=== PATIENT | male | born 1960 | race Caucasian/White ===

== ENCOUNTER 2020-12-28 06:03 | Inpatient (IN) | payer MEDICAID, MEDICARE ==
[2020-12-28] MEDS ORDERED: SODIUM CHLORIDE 0.9% 1,000 ML IV STA (06:06)
[2020-12-28 06:09] VITALS: TEMP 97.8
[2020-12-28 06:11] LABS: Glucose,Whole Blood 204 mg/dL (75-99)
--- NOTE | 2020-12-28 06:20 | ED ---
Weakness HPI - General Source: EMS, RN notes reviewed, old records reviewed Mode of arrival: EMS Limitations: no limitations, altered mental status - History of Present Illness MD Complaint: generalized weakness, lack of energy -: days(s) Location: generalized Severity: moderate (Patient woke up today with worsening symptoms in the abdominal pain) Consistency: constant Improves with: none Worsens with: none Context: recent illness, history of similar Associated Symptoms: easy bruising, shortness of breath <Morales Roth - Last Filed: 12/28/20 06:43> <Rony Lopez - Last Filed: 12/28/20 09:30> - General Chief complaint: Abdominal Pain Stated complaint: Abdominal Pain Time Seen by Provider: 12/28/20 06:04 - History of Present Illness Initial comments: This is a 60-year-old male DF for evaluation patient is presented for home for multiple complaints, abdominal pain weakness dizziness lightheadedness. Feels like he may pass out. She had persistent epigastric pain with no nausea vomiting or diarrhea. Weakness lightheadedness and dizziness are acute on chronic issue for him. He has history of significant anemia. Blood pressure was low per EMS. (Morales Roth) - Related Data Home Medications Medication Instructions Recorded Confirmed Aspirin 81 mg PO DAILY 12/28/20 12/28/20 Calcium Polycarbophil [Fibercon] 625 mg PO DAILY 12/28/20 12/28/20 Cinnamon Bark [Cinnamon] 1,000 mg PO BID 12/28/20 12/28/20 Clopidogrel [Plavix] 75 mg PO DAILY 12/28/20 12/28/20 Docusate [Colace] 100 mg PO DAILY 12/28/20 12/28/20 Gabapentin [Neurontin] 100 mg PO DAILY 12/28/20 12/28/20 Gabapentin [Neurontin] 300 mg PO HS 12/28/20 12/28/20 Insulin Degludec [Tresiba 45 units SQ DAILY 12/28/20 12/28/20 Flextouch U-200] Insulin Lispro [humaLOG Kwikpen] See Protocol SQ AC-TID 12/28/20 12/28/20 Latanoprost/Pf [Latanoprost 0.005% 1 drop BOTH EYES HS 12/28/20 12/28/20 Eye Drop] Levocetirizine Dihydrochloride 5 mg PO DAILY 12/28/20 12/28/20 [Xyzal] Losartan [Cozaar] 50 mg PO BID 12/28/20 12/28/20 Magnesium Oxide [Mag-Ox] 400 mg PO DAILY 12/28/20 12/28/20 Metoclopramide [Reglan] 5 mg PO DAILY 12/28/20 12/28/20 Mirtazapine [Remeron] 30 mg PO HS 12/28/20 12/28/20 Multivit-Mins/Iron/Folic/Lycop 1 tab PO DAILY 12/28/20 12/28/20 [Centrum Men's Tablet] [place]-3 Fatty Acids [Cel[place]on-3] 2,000 mg PO DAILY 12/28/20 12/28/20 Pantoprazole [Protonix] 40 mg PO DAILY 12/28/20 12/28/20 Ponatinib HCl [Iclusig] 15 mg PO BID 12/28/20 12/28/20 Turmeric/Turmeric Root Extract 1 cap PO DAILY 12/28/20 12/28/20 [Turmeric 450-50 mg Capsule] Zolpidem Tartrate 1.75 mg SL HS PRN 12/28/20 12/28/20 predniSONE 2.5 mg PO DAILY 12/28/20 12/28/20 rOPINIRole HCL [Requip] 3 mg PO HS 12/28/20 12/28/20 sitaGLIPtin [Januvia] 100 mg PO DAILY 12/28/20 12/28/20 Allergies Allergy/AdvReac Type Severity Reaction Status Date / Time adhesive tape Allergy Unknown Verified 12/28/20 08:23 amoxicillin [From Augmentin] Allergy Unknown Verified 12/28/20 08:23 ampicillin [From Unasyn] Allergy Unknown Verified 12/28/20 08:23 clavulanic acid Allergy Unknown Verified 12/28/20 08:23 [From Augmentin] clindamycin [From Cleocin] Allergy Unknown Verified 12/28/20 08:23 digoxin Allergy Rash/Hives Verified 12/28/20 08:23 latex Allergy Unknown Verified 12/28/20 08:23 nilotinib [From Tasigna] Allergy Unknown Verified 12/28/20 08:23 Penicillins Allergy Rash/Hives Verified 12/28/20 08:23 sulbactam [From Unasyn] Allergy Unknown Verified 12/28/20 08:23 Review of Systems ROS Other: All systems not noted in ROS Statement are negative. <Morales Roth - Last Filed: 12/28/20 06:43> ROS Other: All systems not noted in ROS Statement are negative. <Rony Lopez - Last Filed: 12/28/20 09:30> ROS Statement: Those systems with pertinent positive or pertinent negative responses have been documented in the HPI. 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 Absent: scleral icterus, conjunctival injection, periorbital swelling ENT exam: Present: normal exam, mucous membranes moist Neck exam: Present: normal inspection. Absent: tenderness, meningismus, lymphadenopathy Respiratory exam: Present: normal lung sounds bilaterally. Absent: respiratory distress, wheezes, rales, rhonchi, stridor Cardiovascular Exam: Present: regular rate, normal rhythm, normal heart sounds. Absent: systolic murmur, diastolic murmur, rubs, gallop, clicks GI/Abdominal exam: Present: soft, normal bowel sounds. Absent: distended, tenderness, guarding, rebound, rigid Extremities exam: Present: normal inspection, full ROM, normal capillary refill. Absent: tenderness, pedal edema, joint swelling, calf tenderness Back exam: Present: normal inspection Neurological exam: Present: alert, oriented X3, CN II-XII intact Psychiatric exam: Present: normal affect, normal mood Skin exam: Present: warm, dry, intact, normal color. Absent: rash <Morales Roth - Last Filed: 12/28/20 06:43> Course <Morales Roth - Last Filed: 12/28/20 06:43> <Rony Lopez - Last Filed: 12/28/20 09:30> Vital Signs 12/28/20 12/28/20 12/28/20 06:04 06:21 07:16 Temperature 97.8 F Pulse Rate 60 60 60 Respiratory 19 19 15 Rate Blood Pressure 92/56 116/50 74/48 O2 Sat by Pulse 99 99 100 Oximetry 12/28/20 12/28/20 08 07:22 08:15 08:30 Temperature Pulse Rate 60 62 63 Respiratory 18 20 20 Rate Blood Pressure 74/42 115/71 119/59 O2 Sat by Pulse 99 96 99 Oximetry - Reevaluation(s) Reevaluation #1: 12/28/20 06:44 Medical record is reviewed (Morales Roth) Reevaluation #2: 12/28/20 06:44 Patient is a difficult IV start here in the ER (Morales Roth) Reevaluation #3: 12/28/20 0700 Patient reevaluated at the onset of my shift, he had a blood pressure in the 90s systolic. He appears pale. No further abdominal pain. No abdominal tenderness on exam. Laboratory studies pending as well as imaging. (Rony Lopez) Reevaluation #4: 12/28/20 09:27 Patient without further pain. Blood pressure improved with hydration. (Rony Lopze) EKG Findings - EKG Comments: EKG Findings:: EKG is paced at 68 FL 210 QRS 88 QTc 454 <Morales Roth - Last Filed: 12/28/20 06:43> Medical Decision Making - Lab Data Result diagrams: 12/28/20 07:15 12/28/20 07:15 <Rony Lopez - Last Filed: 12/28/20 09:30> - Medical Decision Making 60-year-old male with past medical history of leukemia, on oral chemotherapy, history of anemia, history of traumatic brain injury and CVA. Patient had presented initially with abdominal pain which began suddenly this morning. Patient had been in his usual state of health yesterday. Been quite active with his son. Laboratory studies reveal normal white blood cell count, hemoglobin 9.0 which is stable for this patient according to his family who is at bedside. He has a platelets of 100. Normal electrolytes, he is acidotic with CO2 of 18 and a lactic of 3.8. His chest x-ray is clear. Abdominal CT shows ascites and hepatosplenomegaly with no acute findings. His blood pressure does respond to fluid bolus. He will be admitted for IV hydration and close observation, further evaluation and treatment. Admitting physician has been paged. Urinalysis pending (Rony Lopez) - Lab Data Lab Results 12/28/20 12/28/20 12/28/20 Range/Units 06:09 07:15 07:15 WBC 10.1 (3.8-10.6) k/uL RBC 3.01 L (4.30-5.90) m/uL Hgb 9.0 L (13.0-17.5) gm/dL Hct 28.3 L (39.0-53.0) % MCV 94.1 (80.0-100.0) fL MCH 29.8 (25.0-35.0) pg MCHC 31.7 (31.0-37.0) g/dL RDW 20.4 H (11.5-15.5) % Plt Count 106 L (150-450) k/uL MPV 10.2 Hypochromasia Marked Poikilocytosis Slight Anisocytosis Moderate Macrocytosis Slight Sodium 136 L (137-145) mmol/L Potassium 4.4 (3.5-5.1) mmol/L Chloride 108 H (98-107) mmol/L Carbon Dioxide 18 L (22-30) mmol/L Anion Gap 10 mmol/L BUN 14 (9-20) mg/dL Creatinine 1.03 (0.66-1.25) mg/dL Est GFR (CKD-EPI)AfAm >90 (>60 ml/min/1.73 sqM) Est GFR (CKD-EPI)NonAf 79 (>60 ml/min/1.73 sqM) Glucose 221 H (74-99) mg/dL POC Glucose (mg/dL) 204 H (75-99) mg/dL POC Glu Vp Of Marketing ID Godinez, Floyd Plasma Lactic Acid Gaurang (0.7-2.0) mmol/L Calcium 9.1 (8.4-10.2) mg/dL Phosphorus 4.3 (2.5-4.5) mg/dL Magnesium 1.8 (1.6-2.3) mg/dL Total Bilirubin 0.3 (0.2-1.3) mg/dL AST 41 (17-59) U/L ALT 27 (4-49) U/L Alkaline Phosphatase 76 (38-126) U/L Creatine Kinase 161 (55-170) U/L Troponin I (0.000-0.034) ng/mL NT-Pro-B Natriuret Pep pg/mL Total Protein 5.9 L (6.3-8.2) g/dL Albumin 3.3 L (3.5-5.0) g/dL Lipase 36 (23-300) U/L Blood Type Blood Type Recheck Bld Type Recheck Status Spec Expiration Date 12/28/20 12/28/20 12/28/20 Range/Units 07:15 07:15 07:15 WBC (3.8-10.6) k/uL RBC (4.30-5.90) m/uL Hgb (13.0-17.5) gm/dL Hct (39.0-53.0) % MCV (80.0-100.0) fL MCH (25.0-35.0) pg MCHC (31.0-37.0) g/dL RDW (11.5-15.5) % Plt Count (150-450) k/uL MPV Hypochromasia Poikilocytosis Anisocytosis Macrocytosis Sodium (137-145) mmol/L Potassium (3.5-5.1) mmol/L Chloride (98-107) mmol/L Carbon Dioxide (22-30) mmol/L Anion Gap mmol/L BUN (9-20) mg/dL Creatinine (0.66-1.25) mg/dL Est GFR (CKD-EPI)AfAm (>60 ml/min/1.73 sqM) Est GFR (CKD-EPI)NonAf (>60 ml/min/1.73 sqM) Glucose (74-99) mg/dL POC Glucose (mg/dL) (75-99) mg/dL POC Glu Vp Of Marketing ID Plasma Lactic Acid Gaurang 3.8 H* (0.7-2.0) mmol/L Calcium (8.4-10.2) mg/dL Phosphorus (2.5-4.5) mg/dL Magnesium (1.6-2.3) mg/dL Total Bilirubin (0.2-1.3) mg/dL AST (17-59) U/L ALT (4-49) U/L Alkaline Phosphatase (38-126) U/L Creatine Kinase (55-170) U/L Troponin I <0.012 (0.000-0.034) ng/mL NT-Pro-B Natriuret Pep 1140 pg/mL Total Protein (6.3-8.2) g/dL Albumin (3.5-5.0) g/dL Lipase (23-300) U/L Blood Type Blood Type Recheck Bld Type Recheck Status Spec Expiration Date 12/28/20 12/28/20 Range/Units 07:15 08:27 WBC (3.8-10.6) k/uL RBC (4.30-5.90) m/uL Hgb (13.0-17.5) gm/dL Hct (39.0-53.0) % MCV (80.0-100.0) fL MCH (25.0-35.0) pg MCHC (31.0-37.0) g/dL RDW (11.5-15.5) % Plt Count (150-450) k/uL MPV Hypochromasia Poikilocytosis Anisocytosis Macrocytosis Sodium (137-145) mmol/L Potassium (3.5-5.1) mmol/L Chloride (98-107) mmol/L Carbon Dioxide (22-30) mmol/L Anion Gap mmol/L BUN (9-20) mg/dL Creatinine (0.66-1.25) mg/dL Est GFR (CKD-EPI)AfAm (>60 ml/min/1.73 sqM) Est GFR (CKD-EPI)NonAf (>60 ml/min/1.73 sqM) Glucose (74-99) mg/dL POC Glucose (mg/dL) (75-99) mg/dL POC Glu Vp Of Marketing ID Plasma Lactic Acid Gaurang (0.7-2.0) mmol/L Calcium (8.4-10.2) mg/dL Phosphorus (2.5-4.5) mg/dL Magnesium (1.6-2.3) mg/dL Total Bilirubin (0.2-1.3) mg/dL AST (17-59) U/L ALT (4-49) U/L Alkaline Phosphatase (38-126) U/L Creatine Kinase (55-170) U/L Troponin I (0.000-0.034) ng/mL NT-Pro-B Natriuret Pep pg/mL Total Protein (6.3-8.2) g/dL Albumin (3.5-5.0) g/dL Lipase (23-300) U/L Blood Type O Negative Blood Type Recheck No Previous Record No Previous Record Bld Type Recheck Status CABO Indicated CABO Indicated Spec Expiration Date 12/31/2020231412/31/20202326 Critical Care Time Critical Care Time: Yes Total Critical Care Time: 35 <Rony Lopez - Last Filed: 12/28/20 09:30> Disposition <Morales Roth - Last Filed: 12/28/20 06:43> Is patient prescribed a controlled substance at d/c from ED?: No Decision to Admit Reason: Admit from EC Decision Date: 12/28/20 Decision Time: 09:29 <Rony Lopez - Last Filed: 12/28/20 09:30> Clinical Impression: Abdominal pain, Lactic acidosis, Dehydration Disposition: ADMITTED IP TO THIS [facility] Condition: Stable Referrals: Anne Prescott DO [Primary Care Provider] - 1-2 days
[2020-12-28 07:32] LABS: Anisocytosis Moderate; HCT 28.3 % (39.0-53.0); Hypochromasia Marked; MCH 29.8 pg (25.0-35.0); MCHC 31.7 g/dL (31.0-37.0); MCV 94.1 fL (80.0-100.0); Macrocytosis Slight; Mean Platelet Volume 10.2; Platelet Count 106 k/uL (150-450); Poikilocytosis Slight; RBC 3.01 m/uL (4.30-5.90); RDW 20.4 % (11.5-15.5); WBC 10.1 k/uL (3.8-10.6)
[2020-12-28 07:52] LABS: ALT 27 U/L (4-49); AST 41 U/L (17-59); African American GFR (CKD) >90 (>60 ml/min/1.73 sqM); Albumin 3.3 g/dL (3.5-5.0); Alkaline Phosphatase 76 U/L (38-126); Anion Gap 10 mmol/L; Blood Urea Nitrogen 14 mg/dL (9-20); Calcium 9.1 mg/dL (8.4-10.2); Carbon Dioxide 18 mmol/L (22-30); Chloride 108 mmol/L (98-107); Creatine Kinase 161 U/L (55-170); Glucose 221 mg/dL (74-99); Lipase 36 U/L (23-300); Magnesium 1.8 mg/dL (1.6-2.3); Non-African American GFR(CKD) 79 (>60 ml/min/1.73 sqM); Phosphorus 4.3 mg/dL (2.5-4.5); Potassium 4.4 mmol/L (3.5-5.1); Sodium 136 mmol/L (137-145); Total Bilirubin 0.3 mg/dL (0.2-1.3); Total Protein 5.9 g/dL (6.3-8.2)
[2020-12-28] MEDS ORDERED: SODIUM CHLORIDE 0.9% 500 ML 500 ML IV ONE (07:58)
--- NOTE | 2020-12-28 08:37 | CT ---
EXAMINATION TYPE: CT abdomen pelvis wo con DATE OF EXAM: 12/28/2020 COMPARISON: None INDICATION: Abdominal pain DLP: 2015.2 mGycm, Automated exposure control for dose reduction was used. CONTRAST: 0 mL of Isovue 300. Study performed without Oral Contrast TECHNIQUE: Axial images were obtained from above the diaphragm to the pubic rami in the axial plane a t 5 mm thick sections. Reconstructed images are reviewed on the computer in the coronal plane. FINDINGS: Limited CT sections are obtained the lung bases. Scattered streaky opacities in bilateral lung bases likely on the basis of atelectasis. Some very minimal pleural effusions. Be present greater on the r ight. Some pleural calcification and plaquing may be present on the posterior lateral left lung base. This would warrant follow-up. CT ABDOMEN: Mild ascites is present. Liver: Hepatomegaly is present at 26.1 cm. Calcification is within the liver. Spleen: Marked splenomegaly at 19.9 cm. Pancreas: Normal Adrenal glands: The adrenal glands are normal. Gallbladder: Surgically absent Kidneys: No masses are evident. No hydronephrosis is present. No cysts are present. A very fine un measurable calcification may be at the superior pole right kidney. No enlarged or obstructing renal s tones are evident. Aorta: Vascular calcification is within the aorta. Inferior vena cava: Filters within the inferior vena cava. CT PELVIS: Some free fluid is within the pelvis. Loops of bowel within the abdomen and pelvis are normal. This study without oral contrast limitin g bowel evaluation. Appendix: Not identified. No dilated tubular structure or inflammatory changes are evident. Urinary bladder: Normal. Genitourinary structures: Prostate appears unremarkable Osseous structures: No suspicious lytic or sclerotic lesions. Facet degenerative changes are within t he lower lumbar spine. Bilateral fat-containing inguinal hernias are present. IMPRESSIONS: 1. Ascites. 2. Hepatosplenomegaly.
[2020-12-28 08:39] LABS: Band Neutrophils % 8 %; Lymphocytes # (M) 3.94 k/uL (1.0-4.8); Metamyelocytes % 2 %; Myelocytes % 4 %; Neutrophils % (M) 30 %
[2020-12-28 08:40] LABS: Blast Cells # (M) 1.62 k/uL (0); Nucleated Red Blood Cells 0 /100 WBC (0-0); Total Cells Counted 100
--- NOTE | 2020-12-28 08:53 | XR ---
EXAMINATION TYPE: XR chest 1V portable DATE OF EXAM: 12/28/2020 COMPARISON: CT same date HISTORY: Epigastric pain, abdomen pain, nausea, abnormal CT TECHNIQUE: Single frontal view of the chest is obtained. FINDINGS: Patchy density is again noted the right lung base, there is blunting the right costophreni c angle, possibly chronic pleural reaction, atelectasis. Cardiac mediastinal silhouette is within nor mal limits. There is generated in the left pectoral region, there are leads in the right atrium and v entricle. No evident pneumothorax. Patient is rotated. There is an underlying scoliotic curvature to the spine. There are overlying artifacts. IMPRESSION: Probable chronic pleural reaction at the right lung base, there may be some atelectasis or scarring.
[2020-12-28] MEDS ORDERED: ACETAMINOPHEN TAB 325 MG TAB PO PRN (09:25)
[2020-12-28] MEDS ORDERED: NALOXONE 0.4 MG/ML 1 ML VIAL IV PRN ×2 (09:25→12:42)
[2020-12-28] MEDS ORDERED: HYDROmorphone 0.5 MG/0.5 ML SYRINGE IVP PRN (09:25)
[2020-12-28] MEDS ORDERED: ONDANSETRON 4 MG/2 ML VIAL IVP PRN (09:25)
[2020-12-28] MEDS ORDERED: SODIUM CHLORIDE 0.9% 1,000 ML IV SCH (09:30)
[2020-12-28 11:36] VITALS: RESP 18
[2020-12-28 11:54] LABS: Partial Thromboplastin Time 25.7 sec (22.0-30.0)
[2020-12-28 12:09] LABS: Appearance,Urine Clear (Clear); Bilirubin,Urine Negative (Negative); Blood,Urine Negative (Negative); Color,Urine Yellow; Glucose,Urine (UA) Negative (Negative); Ketones,Urine Negative (Negative); Leukocyte Esterase,Urine Negative (Negative); Nitrite,Urine Negative (Negative); Protein,Urine Negative (Negative); Specific Gravity,Urine 1.017 (1.001-1.035); Urobilinogen,Urine <2.0 mg/dL (<2.0)
[2020-12-28 13:06] LABS: Polychromasia Present
[2020-12-28] MEDS ORDERED: ASPIRIN 81 MG PO SCH (14:00)
[2020-12-28] MEDS ORDERED: predniSONE 2.5 MG TAB PO SCH (14:00)
[2020-12-28] MEDS ORDERED: CLOPIDOGREL 75 MG TAB PO SCH (14:00)
[2020-12-28] MEDS ORDERED: GABAPENTIN 100 MG CAP PO SCH ×2 (14:00→21:00)
[2020-12-28] MEDS ORDERED: METOCLOPRAMIDE 5 MG TAB PO SCH (14:00)
[2020-12-28] MEDS ORDERED: LORATADINE 10 MG TAB PO SCH (14:00)
[2020-12-28] MEDS ORDERED: MAGNESIUM OXIDE 400 MG TAB PO SCH (14:00)
[2020-12-28] MEDS ORDERED: DOCUSATE 100 MG CAP PO SCH (14:00)
[2020-12-28 14:38] VITALS: BP 130/63; PULSE 71
--- NOTE | 2020-12-28 15:35 | P.HPIM ---
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 Patient's history is supplemented by son who is at bedside. From my understanding, patient had an acute onset of abdominal pain this morning and continued to be lethargic throughout the day. Patient has been on oral immunotherapy for ALL, and recently had his blood counts checked and was found to have stable blood counts approximately 1 week ago. However, throughout the week, patient has been increasingly weak. In addition to his abdominal pain, which is described to be in his lower quadrants, he also has had nausea without vomiting. He denies fevers, chills, chest pain, dyspnea, palpitations, diarrhea, numbness/weakness of extremities. He does report abdominal fullness, constipation. In the emergency room, patient is afebrile, initially 70s over 40s which improved to 130/63 with IV fluids. Lab work is significant for anemia down to 9.0, thrombus cytopenia down to 106, last anemia with 60% blast cells; bicarb of 18 without an anion gap, initial lactic acid is 3.8 which improved to 2.2, ENP of 1140, negative troponin, negative CK, negative lipase. UA was unremarkable. CT of the abdomen/pelvis was significant for hepatosplenomegaly as well as as cites, which patient reports is new. Chest x-ray shows chronic right lower lobe pleural scarring consistent with his history of pleurodesis. EKG shows atrial paced rhythm with no bundle branch block. 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 History of Any Multi-Drug Resistant Organisms: None Reported Past Surgical History: AICD, Heart Catheterization With Stent Additional Past Surgical History / Comment(s): halo, trach, feeding tube Past Psychological History: No Psychological Hx Reported Smoking Status: Never smoker Past Alcohol Use History: None Reported Past Drug Use History: None Reported Medications and Allergies Home Medications Medication Instructions Recorded Confirmed Type Aspirin 81 mg PO DAILY 12/28/20 12/28/20 History Calcium Polycarbophil [Fibercon] 625 mg PO DAILY 12/28/20 12/28/20 History Cinnamon Bark [Cinnamon] 1,000 mg PO BID 12/28/20 12/28/20 History Clopidogrel [Plavix] 75 mg PO DAILY 12/28/20 12/28/20 History Docusate [Colace] 100 mg PO DAILY 12/28/20 12/28/20 History Gabapentin [Neurontin] 100 mg PO DAILY 12/28/20 12/28/20 History Gabapentin [Neurontin] 300 mg PO HS 12/28/20 12/28/20 History Insulin Degludec [Tresiba 45 units SQ DAILY 12/28/20 12/28/20 History Flextouch U-200] Insulin Lispro [humaLOG Kwikpen] See Protocol SQ AC-TID 12/28/20 12/28/20 History Latanoprost/Pf [Latanoprost 0.005% 1 drop BOTH EYES HS 12/28/20 12/28/20 History Eye Drop] Levocetirizine Dihydrochloride 5 mg PO DAILY 12/28/20 12/28/20 History [Xyzal] Losartan [Cozaar] 50 mg PO BID 12/28/20 12/28/20 History Magnesium Oxide [Mag-Ox] 400 mg PO DAILY 12/28/20 12/28/20 History Metoclopramide [Reglan] 5 mg PO DAILY 12/28/20 12/28/20 History Mirtazapine [Remeron] 30 mg PO HS 12/28/20 12/28/20 History Multivit-Mins/Iron/Folic/Lycop 1 tab PO DAILY 12/28/20 12/28/20 History [Centrum Men's Tablet] [place]-3 Fatty Acids [[place]-3] 2,000 mg PO DAILY 12/28/20 12/28/20 History Pantoprazole [Protonix] 40 mg PO DAILY 12/28/20 12/28/20 History Ponatinib HCl [Iclusig] 15 mg PO BID 12/28/20 12/28/20 History Turmeric/Turmeric Root Extract 1 cap PO DAILY 12/28/20 12/28/20 History [Turmeric 450-50 mg Capsule] Zolpidem Tartrate 1.75 mg SL HS PRN 12/28/20 12/28/20 History predniSONE 2.5 mg PO DAILY 12/28/20 12/28/20 History rOPINIRole HCL [Requip] 3 mg PO HS 12/28/20 12/28/20 History sitaGLIPtin [Januvia] 100 mg PO DAILY 12/28/20 12/28/20 History Allergies Allergy/AdvReac Type Severity Reaction Status Date / Time adhesive tape Allergy Unknown Verified 12/28/20 08:23 amoxicillin [From Augmentin] Allergy Unknown Verified 12/28/20 08:23 ampicillin [From Unasyn] Allergy Unknown Verified 12/28/20 08:23 clavulanic acid Allergy Unknown Verified 12/28/20 08:23 [From Augmentin] clindamycin [From Cleocin] Allergy Unknown Verified 12/28/20 08:23 digoxin Allergy Rash/Hives Verified 12/28/20 08:23 latex Allergy Unknown Verified 12/28/20 08:23 nilotinib [From Tasigna] Allergy Unknown Verified 12/28/20 08:23 Penicillins Allergy Rash/Hives Verified 12/28/20 08:23 sulbactam [From Unasyn] Allergy Unknown Verified 12/28/20 08:23 Physical Exam Osteopathic Statement: *. No significant issues noted on an osteopathic structural exam other than those noted in the History and Physical/Consult. Vitals: Vital Signs Temp Pulse Resp BP Pulse Ox 12/28/20 14:38 71 18 130/63 99 12/28/20 13:16 68 18 129/68 97 12/28/20 11:36 68 18 130/70 94 L 12/28/20 10:00 67 18 128/56 98 12/28/20 08:30 63 20 119/59 99 12/28/20 08:15 62 20 115/71 96 12/28/20 07:22 60 18 74/42 99 12/28/20 07:16 60 15 74/48 100 12/28/20 06:21 60 19 116/50 99 12/28/20 06:04 97.8 F 60 19 92/56 99 Intake and Output 12/28/20 12/28/20 12/28/20 06:59 14:59 22:59 Other: Weight 129.274 kg Gen: awake, alert HEENT: normocephalic, atraumatic, good hearing acuity, moist mucous membranes Resp: good air exchange, breathing comfortably with no accessory muscle use, clear to auscultation bilaterally without wheezes or crackles CVS: good distal perfusion x 4, regular rate and rhythm without murmurs GI: Diffusely tenderness to palpation worse in the lower quadrants, positive ascites, appropriate bowel sounds : no SPT, no CVAT, colbert catheter not present MSK: Trace pitting edema, no clubbing Neuro: non-focal, moving all extremities Psych: cooperative, euthymic mood Results CBC & Chem 7: 12/28/20 07:15 12/28/20 07:15 Labs: Abnormal Lab Results - Last 24 Hours (Table) 12/28/20 12/28/20 12/28/20 Range/Units 06:09 07:15 07:15 RBC 3.01 L (4.30-5.90) m/uL Hgb 9.0 L (13.0-17.5) gm/dL Hct 28.3 L (39.0-53.0) % RDW 20.4 H (11.5-15.5) % Plt Count 106 L (150-450) k/uL Blast Cells % 16 H* % Metamyelocytes # (Man) 0.20 H (0) k/uL Myelocytes # (Manual) 0.40 H (0) k/uL Blast Cells # (Man) 1.62 H (0) k/uL Sodium 136 L (137-145) mmol/L Chloride 108 H (98-107) mmol/L Carbon Dioxide 18 L (22-30) mmol/L Glucose 221 H (74-99) mg/dL POC Glucose (mg/dL) 204 H (75-99) mg/dL Plasma Lactic Acid Gaurang (0.7-2.0) mmol/L Total Protein 5.9 L (6.3-8.2) g/dL Albumin 3.3 L (3.5-5.0) g/dL 12/28/20 12/28/20 Range/Units 07:15 11:00 RBC (4.30-5.90) m/uL Hgb (13.0-17.5) gm/dL Hct (39.0-53.0) % RDW (11.5-15.5) % Plt Count (150-450) k/uL Blast Cells % % Metamyelocytes # (Man) (0) k/uL Myelocytes # (Manual) (0) k/uL Blast Cells # (Man) (0) k/uL Sodium (137-145) mmol/L Chloride (98-107) mmol/L Carbon Dioxide (22-30) mmol/L Glucose (74-99) mg/dL POC Glucose (mg/dL) (75-99) mg/dL Plasma Lactic Acid Gaurang 3.8 H* 2.2 H* (0.7-2.0) mmol/L Total Protein (6.3-8.2) g/dL Albumin (3.5-5.0) g/dL Assessment and Plan Assessment: Abdominal pain Ascites -Admit inpatient, telemetry -IR consult for paracentesis -Continue Lasix, spironolactone -Ceftriaxone to cover for SBP 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 After my evaluation, I got a call from nursing that the patient would like to leave a medical advice, and does have the capacity to do so. Therefore, patient will be discharged AMA, with instructions to go to the emergency room should his symptoms return or worsen.
[2020-12-28] MEDS ORDERED: INSULIN ASPART (NovoLOG) 100 UNIT/ML VIAL SQ SCH (17:30)
--- NOTE | 2020-12-28 18:30 | P.DS ---
Providers Date of admission: 12/28/20 09:25 Expected date of discharge: 12/28/20 Attending physician: Lavern Espinoza DO [facility] Course: Patient left AMA. Patient Condition at Discharge: Stable Plan - Discharge Summary New Discharge Prescriptions: No Action Turmeric/Turmeric Root Extract [Turmeric 450-50 mg Capsule] 1 cap PO DAILY Multivit-Mins/Iron/Folic/Lycop [Centrum Men's Tablet] 1 tab PO DAILY Docusate [Colace] 100 mg PO DAILY Bryant-3 Fatty Acids [Bryant-3] 2,000 mg PO DAILY rOPINIRole HCL [Requip] 3 mg PO HS Metoclopramide [Reglan] 5 mg PO DAILY predniSONE 2.5 mg PO DAILY sitaGLIPtin [Januvia] 100 mg PO DAILY Pantoprazole [Protonix] 40 mg PO DAILY Gabapentin [Neurontin] 100 mg PO DAILY Ponatinib HCl [Iclusig] 15 mg PO BID Losartan [Cozaar] 50 mg PO BID Clopidogrel [Plavix] 75 mg PO DAILY Insulin Degludec [Tresiba Flextouch U-200] 45 units SQ DAILY Levocetirizine Dihydrochloride [Xyzal] 5 mg PO DAILY Cinnamon Bark [Cinnamon] 1,000 mg PO BID Calcium Polycarbophil [Fibercon] 625 mg PO DAILY Magnesium Oxide [Mag-Ox] 400 mg PO DAILY Mirtazapine [Remeron] 30 mg PO HS Aspirin 81 mg PO DAILY Gabapentin [Neurontin] 300 mg PO HS Latanoprost/Pf [Latanoprost 0.005% Eye Drop] 1 drop BOTH EYES HS Zolpidem Tartrate 1.75 mg SL HS PRN PRN Reason: Insomnia Insulin Lispro [humaLOG Kwikpen] See Protocol SQ AC-TID Discharge Medication List Aspirin 81 mg PO DAILY 12/28/20 [History] Calcium Polycarbophil [Fibercon] 625 mg PO DAILY 12/28/20 [History] Cinnamon Bark [Cinnamon] 1,000 mg PO BID 12/28/20 [History] Clopidogrel [Plavix] 75 mg PO DAILY 12/28/20 [History] Docusate [Colace] 100 mg PO DAILY 12/28/20 [History] Gabapentin [Neurontin] 100 mg PO DAILY 12/28/20 [History] Gabapentin [Neurontin] 300 mg PO HS 12/28/20 [History] Insulin Degludec [Tresiba Flextouch U-200] 45 units SQ DAILY 12/28/20 [History] Insulin Lispro [humaLOG Kwikpen] See Protocol SQ AC-TID 12/28/20 [History] Latanoprost/Pf [Latanoprost 0.005% Eye Drop] 1 drop BOTH EYES HS 12/28/20 [History] Levocetirizine Dihydrochloride [Xyzal] 5 mg PO DAILY 12/28/20 [History] Losartan [Cozaar] 50 mg PO BID 12/28/20 [History] Magnesium Oxide [Mag-Ox] 400 mg PO DAILY 12/28/20 [History] Metoclopramide [Reglan] 5 mg PO DAILY 12/28/20 [History] Mirtazapine [Remeron] 30 mg PO HS 12/28/20 [History] Multivit-Mins/Iron/Folic/Lycop [Centrum Men's Tablet] 1 tab PO DAILY 12/28/20 [History] Bryant-3 Fatty Acids [Bryant-3] 2,000 mg PO DAILY 12/28/20 [History] Pantoprazole [Protonix] 40 mg PO DAILY 12/28/20 [History] Ponatinib HCl [Iclusig] 15 mg PO BID 12/28/20 [History] Turmeric/Turmeric Root Extract [Turmeric 450-50 mg Capsule] 1 cap PO DAILY 12/28/20 [History] Zolpidem Tartrate 1.75 mg SL HS PRN 12/28/20 [History] predniSONE 2.5 mg PO DAILY 12/28/20 [History] rOPINIRole HCL [Requip] 3 mg PO HS 12/28/20 [History] sitaGLIPtin [Januvia] 100 mg PO DAILY 12/28/20 [History] Follow up Appointment(s)/Referral(s): Anne Prescott DO [Primary Care Provider] - 1-2 days Discharge Disposition: Left Against Medical Advice
[2020-12-28] MEDS ORDERED: ZOLPIDEM 5 MG TAB PO PRN (21:00)
[2020-12-28] MEDS ORDERED: NON FORMULARY DRUG (Cinnamon Bark [Cinnamon] 500 MG Capsule) PO SCH (21:00)
[2020-12-28] MEDS ORDERED: LATANOPROST 0.005% OPHTH DROPS 2.5 ML BTL BOTH EYES SCH (21:00)
[2020-12-28] MEDS ORDERED: MIRTAZAPINE 15 MG TAB PO SCH (21:00)
[2020-12-29] MEDS ORDERED: INSULIN DETEMIR (LEVEMIR) 100 UNIT/ML SYR SQ SCH (07:00)
[2020-12-29] MEDS ORDERED: PANTOPRAZOLE 40 MG/10 ML VIAL IV SCH (09:00)
[2020-12-29] MEDS ORDERED: [UNRECOGNIZED DRUG - OTHER] PO SCH (09:00)
[2020-12-29] MEDS ORDERED: MULTIVITAMINS, THERA 1 EACH TAB PO SCH (09:00)
[2020-12-29] MEDS ORDERED: NON FORMULARY DRUG (Omega-3 Fatty Acids [Omega-3] 1,000 MG Capsule) PO SCH (09:00)
[2020-12-29] MEDS ORDERED: TURMERIC PO SCH (09:00)
[2020-12-29] MEDS ORDERED: PANTOPRAZOLE 40 MG TABLET PO SCH (09:00)
[2020-12-29] MEDS ORDERED: TURMERIC ROOT EXTRACT PO SCH (09:00)
== END 2020-12-28 15:17 | disposition left against medical advice (07) | DRG 948 ==
LOC: EC 06:03 → 3SCARD 09:25
PROVIDERS: ADMIT Internal Medicine; ATTEND Internal Medicine
PROC: 05HB33Z Insertion of Infusion Device into Right Basilic Vein, Percutaneous Approach (ICD-10-PCS; principal; 2020-12-28 09:00)
DX: R18.8 Other ascites (principal); E87.2 Acidosis; I69.351 Hemiplegia and hemiparesis following cerebral infarction affecting right dominant side; D69.6 Thrombocytopenia, unspecified; I95.9 Hypotension, unspecified; E86.0 Dehydration; E11.9 Type 2 diabetes mellitus without complications; Z79.4 Long term (current) use of insulin; D64.9 Anemia, unspecified; G25.81 Restless legs syndrome; I25.10 Atherosclerotic heart disease of native coronary artery without angina pectoris; I10 Essential (primary) hypertension; E78.5 Hyperlipidemia, unspecified; G47.00 Insomnia, unspecified; F32.9 Major depressive disorder, single episode, unspecified; K59.00 Constipation, unspecified; I25.2 Old myocardial infarction; Z79.82 Long term (current) use of aspirin; Z79.02 Long term (current) use of antithrombotics/antiplatelets; Z79.899 Other long term (current) drug therapy; Z95.5 Presence of coronary angioplasty implant and graft; Z86.718 Personal history of other venous thrombosis and embolism; Z85.6 Personal history of leukemia; Z95.810 Presence of automatic (implantable) cardiac defibrillator; Z87.09 Personal history of other diseases of the respiratory system; Z87.820 Personal history of traumatic brain injury; Z88.1 Allergy status to other antibiotic agents; Z91.040 Latex allergy status; Z88.0 Allergy status to penicillin; Z88.8 Allergy status to other drugs, medicaments and biological substances; Z91.048 Other nonmedicinal substance allergy status
CPT/HCPCS: 36410; 36415; 71045; 74176; 76937; 80053; 81003; 82550; 83605; 83690; 83735; 83880; 84100; 84484; 85025; 85610; 85730; 86850; 86870; 86880; 86900; 86901; 93005; 96360; 99291